=== PATIENT | male | born 1995 | race Caucasian/White ===

== ENCOUNTER → 2018-09-23 | Outpatient (CLI) | payer BC, OTHER ==
--- NOTE | 2018-09-23 16:43 | RADIOLOGY IMAGING REPORT ---
FACILITY: [facility] PATIENT NAME: Santiago Mix : 1995 MR: [id number] V: [id number] EXAM DATE: ORDERING PHYSICIAN: LAURA HA TECHNOLOGIST: [place] [facility] [place] : 1995 Visit/Account:[id number] Date of Sevice: 09/23/2018 US VENOUS LOWER EXT LT HISTORY: Left leg medial calf pain COMPARISON STUDIES: none FINDINGS: Grayscale compression, duplex and color Doppler left lower extremity deep veins from common femoral v ein to proximal calf was performed. The greater saphenous vein was evaluated using similar technique. Common femoral vein negative Femoral vein negative Deep femoral vein - negative Popliteal vein negative Visualized deep calf veins negative Greater saphenous vein in the proximal thigh negative Popliteal fossa: negative IMPRESSION: 1. Negative left leg Report Dictated By: Nakul Allen MD at 09/23/2018 4:37 PM Report E-Signed By: Nakul Allen MD at 09/23/2018 4:38 PM WSN:[email or web address]
== END ==
LOC: US 00:58
PROVIDERS: ATTEND Emergency Medicine Sports Medicine
DX: M79.605 Pain in left leg (principal)